=== PATIENT | male | born 1955 | race Caucasian/White ===

== ENCOUNTER 2016-06-22 08:20 | Outpatient (CLI) | END 2016-06-22 08:21 | disposition home or self-care (01) | LOC: AMBL 08:20 | PROVIDERS: ATTEND Emergency Medicine | DX: M79.605 Pain in left leg (principal); M79.604 Pain in right leg; S80.01XA Contusion of right knee, initial encounter; S80.812A Abrasion, left lower leg, initial encounter; M79.89 Other specified soft tissue disorders; I10 Essential (primary) hypertension; V53.5XXA Driver of pick-up truck or van injured in collision with car, pick-up truck or van in traffic accident, initial encounter ==

== ENCOUNTER 2017-06-25 13:41 | Outpatient (CLI) | END 2017-06-25 13:42 | disposition short-term general hospital (02) | LOC: AMBL 13:41 | PROVIDERS: ATTEND Internal Medicine | DX: R40.4 Transient alteration of awareness (principal); R06.02 Shortness of breath; R42 Dizziness and giddiness; I49.1 Atrial premature depolarization; I49.3 Ventricular premature depolarization ==

== ENCOUNTER 2017-09-21 15:00 | Outpatient (CLI) | END 2017-09-21 15:01 | disposition home or self-care (01) | LOC: RHC-LAB 15:00 | PROVIDERS: ATTEND Emergency Medicine | DX: F43.21 Adjustment disorder with depressed mood (principal); F41.1 Generalized anxiety disorder; R00.2 Palpitations; I10 Essential (primary) hypertension; C61 Malignant neoplasm of prostate | CPT/HCPCS: 36415; 80053; 80061; 84443; 85008; 85025; 93005; 93010 ==

== ENCOUNTER 2017-09-23 14:55 | Outpatient (CLI) ==
--- NOTE | 2017-09-24 08:30 | DI ---
EXAM: PA and lateral views of the chest HISTORY: Palpitations COMPARISON: Chest x-ray 05/19/2012 FINDINGS: The cardiomediastinal silhouette is normal. There is no pneumothorax or pleural effusion. There is no consolidation, nodule or mass. The osseous structures are stable. IMPRESSION: No acute cardiopulmonary process
== END 2017-09-23 14:56 | disposition home or self-care (01) ==
LOC: RAD 14:55
PROVIDERS: ATTEND Emergency Medicine
DX: R00.2 Palpitations (principal); R06.02 Shortness of breath

== ENCOUNTER 2017-10-07 16:15 | Inpatient (IN) ==
[2017-10-07] MEDS ORDERED: SODIUM CHLORIDE 500 ML IV SCH (16:30)
--- NOTE | 2017-10-07 17:08 | DI ---
Exam: Two-view chest x-ray. Date: 10/07/2017. Comparison: 09/23/2017. HISTORY: Shortness of breath. FINDINGS: The osseous structures are normal. The lungs are clear. The cardiac silhouette is enlarg ed. Pulmonary vasculature is normal. ASVD is present. Impression: No acute intrathoracic findings. Cardiomegaly with ASVD.
--- NOTE | 2017-10-07 17:12 | CT ---
Exam: CT scan of the abdomen pelvis without contrast. Date: 10/07/2017. Comparison: 05/20/2012. HISTORY: Bilateral lower extremity swelling. TECHNIQUE: Helical scan of the abdomen pelvis was performed without contrast. FINDINGS: There is a small layering right pleural effusion but incompletely visualized. The lumbar spine and bony pelvis are within normal limits. The spleen and liver have a uniform attenuation. There is possible thickening of the gallbladder wal l with pericholecystic fluid. The stomach, pancreas and adrenal glands are normal. The kidneys have a normal morphology. No calculi or hydronephrosis is seen. No retroperitoneal adenopathy is presen t. Aorta has peripheral calcification and does not exceed 3 cm. The small bowel and appendix are no rmal. The colon, pelvic sidewall and bladder are normal. There is no free pelvic fluid. There are dystrophic calcifications in the prostate. The rectum inguinal regions are normal. Impression: There is possible thickening of gallbladder wall pericholecystic fluid. Cannot exclude the possibility of acute cholecystitis. Abdominal sonogram would be recommended for further evaluati on. Small right pleural effusion.
[2017-10-07] MEDS: LOVENOX SUBCUT SCH (17:16)
[2017-10-07] MEDS: SODIUM CHLORIDE 1,000 ML IV SCH (17:18)
[2017-10-07 17:56] VITALS: BMI 30.1
[2017-10-07] MEDS: LOPRESSOR PO SCH (21:22)
[2017-10-08] MEDS: LOVENOX SUBCUT SCH (08:36)
[2017-10-08] MEDS ORDERED: LASIX IVP STA (08:36)
[2017-10-08] MEDS: CELEXA PO SCH (10:53)
[2017-10-08] MEDS: LOPRESSOR PO SCH ×2 (10:53→20:24)
--- NOTE | 2017-10-08 11:32 | US ---
EXAM: Ultrasound abdomen limited. HISTORY: Abnormal gallbladder on CT. COMPARISON: CT 1 day prior. TECHNIQUE: Abdominal, real time with image documentation: limited (eg, single organ, quadrant, foll ow-up) FINDINGS: The liver demonstrates homogeneous echotexture without intrahepatic biliary dilatation. P ortal venous flow is normal in direction. The gallbladder contains multiple echogenic shadowing stru ctures, gallbladder wall is moderately thickened. Common duct measures approximately 0.7 cm. Visual ized portions of the pancreas are unremarkable. IMPRESSION: Cholelithiasis and gallbladder wall thickening which would raise concern for acute cholecystitis in t he appropriate clinical setting.
[2017-10-08] MEDS: SODIUM CHLORIDE 1,000 ML IV SCH (15:03)
[2017-10-08] MEDS: ATIVAN PO SCH (20:24)
[2017-10-09] MEDS: LOPRESSOR PO SCH ×2 (08:48→21:39)
[2017-10-09] MEDS: CELEXA PO SCH (08:48)
[2017-10-09] MEDS: LOVENOX SUBCUT SCH (08:49)
[2017-10-09] MEDS: AZACTAM 1 GM in SODIUM CHLORIDE 50 ML IV SCH ×3 (09:30→21:39)
--- NOTE | 2017-10-09 09:46 | ECHO2D ---
Date of Exam: 10/08/17 Ordering Physician: DR. MIRLANDE LA Room #: [id number] Reason for Echo: LOWER EXTREMITY SWELLING, SOB M-Mode Normal Adult Results LV Dimensions Normal Adult Results AoV Opening excursions >1.6 >1.6 LVEDD-base- 3.5-5.8 6.8 Ao root dimensions 2.0-3.7 3.6 LVESD-base- 3.1-4.6 L. Atrium dimensions 1.9-3.8 4.8 Post. Wall thickness 0.8-1.1 1.3 IV septum (thickness) 0.7-1.2 1.3 Post. Wall excursion 0.72-1.3 0.6 Septal motion 0.1 Systolic motion R. Ventricular cavity 1.5-2.0 NORMAL LVEF 60% 20 TO 25% Paradoxical septal wall motion NORMAL 2-D : HYPOKINETIC LEFT VENTRICLE--NORMAL VALVES--ENLARGED LEFT VENTRICLE AND LEFT ATRIAL CAVITIES, NO EFFUSION, NO THROMBUS, AKINETIC SEPTUM COLOR FLOW: MODERATE MITRAL REGURGITATION, MILD TO MODERATE TRICUSPID REGURGITATION M-MODE: MV: NORMAL AV: NORMAL TV: NORMAL PV: CHAMBER SIZE: ENLARGED LEFT ATRIAL AND LEFT VENTRICLE CAVITIES WALL MOTION: HYPOKINETIC LEFT VENTRICLE PERICARDIUM: NORMAL INTERPRETATION: 1. LEFT VENTRICULAR HYPERTROPHY 2. ENLARGED LEFT VENTRICLE AND LEFT ATRIAL CAVITIES 3. LEFT VENTRICULAR EJECTION FRACTION 20% TO 25% WITH HYPOKINETIC LEFT VENTRICLE --AKINETIC SEPTUM 4. MODERATE MITRAL REGURGITATION AND MILD TO MODERATE TRICUSPID REGURGITATION MTDD
[2017-10-09] MEDS ORDERED: BUMEX IVP STA (09:47)
[2017-10-09] MEDS: SODIUM CHLORIDE 1,000 ML IV SCH (20:29)
[2017-10-09] MEDS: ATIVAN PO SCH (21:40)
[2017-10-10] MEDS: AZACTAM 1 GM in SODIUM CHLORIDE 50 ML IV SCH ×3 (05:19→20:25)
[2017-10-10] MEDS: LOPRESSOR PO SCH ×2 (09:37→20:25)
[2017-10-10] MEDS: CELEXA PO SCH (09:37)
[2017-10-10] MEDS: LOVENOX SUBCUT SCH (09:37)
[2017-10-10] MEDS ORDERED: ATIVAN ONE (19:48)
[2017-10-10] MEDS ORDERED: ATIVAN PO SCH (21:00)
[2017-10-10] MEDS: SODIUM CHLORIDE 1,000 ML IV SCH (23:41)
[2017-10-11] MEDS: AZACTAM 1 GM in SODIUM CHLORIDE 50 ML IV SCH ×3 (05:28→20:44)
[2017-10-11] MEDS: CELEXA PO SCH (08:58)
[2017-10-11] MEDS: LOPRESSOR PO SCH ×2 (08:58→20:44)
[2017-10-11] MEDS: LOVENOX SUBCUT SCH (08:59)
[2017-10-11] MEDS: DUONEB NEB SCH ×2 (13:23→22:20)
[2017-10-11] MEDS: ATIVAN PO SCH (20:44)
[2017-10-11] MEDS: SODIUM CHLORIDE 1,000 ML IV SCH (23:42)
[2017-10-12] MEDS: AZACTAM 1 GM in SODIUM CHLORIDE 50 ML IV SCH ×3 (04:31→20:02)
[2017-10-12] MEDS: DUONEB NEB SCH ×3 (04:48→22:50)
[2017-10-12] MEDS: LOPRESSOR PO SCH ×2 (08:54→20:02)
[2017-10-12] MEDS: LOVENOX SUBCUT SCH (08:54)
[2017-10-12] MEDS: CELEXA PO SCH (08:54)
--- NOTE | 2017-10-12 11:18 | PN ---
DATE OF SERVICE: 10/10/17 SUBJECTIVE: The patient was admitted with acute on chronic heart failure with echocardiogram showed the ejection fracture of 25%. When I talked to Dr. Rojo Intervention Manager Convention given his kidney function he said that he will not be a candidate for the heart cath at this time. With the GFR 28 he suggested giving the IV fluids and if the kidney function improves then he will be happy to take care of the patient for the heart cath. Meanwhile the patient being treated for the acute cholecystitis also per ultrasound and elevated liver enzymes. The patient has a very much depressed mood because of the demise of the patient's . REVIEW OF SYSTEMS: CONSTITUTIONAL: No fever, no chills. HEENT: Normal. ENDOCRINE: No weight gain, no weight loss. CVS: No angina symptoms. No CHF symptoms. No palpitations. No atypical chest pain for CAD. No shortness of breath. No PND, no orthopnea. RESPIRATORY: No cough, no hemoptysis. GI: No nausea, no vomiting. No abdominal pain. : No hematuria. No polyuria. MUSCULOSKELETAL: No joint swelling. PSYCHIATRIC: Not anxious. No depression. No suicidal thoughts. No homicidal thoughts. SKIN: Intact. No rash. PHYSICAL EXAMINATION: V/S: Blood pressure 136/95, respiratory rate 20, heart rate 77, temperature 97.5 with saturation 99 on 2 liters. HEENT: Normocephalic, atraumatic. Mucosa dry. Pallor positive. No icterus. NECK: Supple. No JVD, no carotid bruit. No lymphadenopathy. LUNGS: Decreased and clear to auscultation. No rales or rhonchi. HEART: S1, S2 normal. No S3. No murmur, gallop or regurgitation. ABDOMEN: Soft, nontender. Bowel sounds active. No rigidity. No rebound or guarding. No CVA tenderness. EXTREMITIES: No cyanosis, clubbing. 1+ edema. MUSCULOSKELETAL: No joint swelling. NEUROLOGIC: Awake, alert, oriented times three. No focal deficit. LYMPHATIC: No lymph nodes palpable. SKIN: Intact. LABS: Sodium 135, potassium 3.9, chloride 103, bicarb 22, BUN 15, creatinine 2.27, AST 136, ALT 368, total bilirubin 1.0, WBC 8.10, hgb 14.3, hct 44.0, plt count 60. ASSESSMENT: 1. Acute on chronic heart failure with ejection fraction of 25%, Left ventricular hypertrophy, Left atrial enlargement, Moderate mitral regurgitation and Mild to moderate tricuspid regurgitation 2. Depression 3. Elevated liver enzymes 4. Cholecystitis per ultrasound but patient does not have abdominal pain, nausea or vomiting or no Shook sign positive. 5. Acute on chronic systolic heart failure needing heart cath but the patient is not a candidate at this time. Contacted Dr. Rojo Intervention Manager Convention at [facility]. PLAN: 1. Continue the daily I&O's 2. Lovenox 30mg 3. Citalopram 4. Azactam 5. IV fluids TIME SPENT: More than 35 minutes MTDD
--- NOTE | 2017-10-12 11:44 | PN ---
DATE OF SERVICE: 10/11/17 SUBJECTIVE: The patient was admitted with acute on chronic heart failure. The patient been having some hypoxic event, saturation going up to 92. We will go ahead and start him on breathing treatments. Reassured patient. REVIEW OF SYSTEMS: CONSTITUTIONAL: No fever, no chills. HEENT: Normal. ENDOCRINE: No weight gain, no weight loss. CVS: No angina symptoms. No CHF symptoms. No palpitations. No atypical chest pain for CAD. Shortness of breath with minimal exertion. No PND, no orthopnea. RESPIRATORY: No cough, no hemoptysis. GI: No nausea, no vomiting. No abdominal pain. : No hematuria. No polyuria. MUSCULOSKELETAL: No joint swelling. PSYCHIATRIC: Not anxious. No depression. No suicidal thoughts. No homicidal thoughts. SKIN: Intact. No rash. PHYSICAL EXAMINATION: V/S: Blood pressure 158/100, respiratory rate 14, heart rate 83, temperature 97.3 with saturation 99. HEENT: Normocephalic, atraumatic. Mucosa dry. Pallor positive. no icterus. NECK: Supple. No JVD, no carotid bruit. No lymphadenopathy. LUNGS: Decreased and basilar crackles. No rales or rhonchi. HEART: S1, S2 normal. No S3. No murmur, gallop or regurgitation. ABDOMEN: Soft, nontender. Bowel sounds active. No rigidity. No rebound or guarding. No CVA tenderness. EXTREMITIES: No cyanosis, clubbing or pedal edema. MUSCULOSKELETAL: No joint swelling. NEUROLOGIC: Awake, alert, oriented times three. No focal deficit. LYMPHATIC: No lymph nodes palpable. SKIN: Intact. LABS: Sodium 130, potassium 3.9, chloride 103, bicarb 22, BUN 50, creatinine 2.27, bilirubin 1.0, AST 136, ALT 368, WBC 8.10, hgb 14.3, hct 44.0, plt count 60. ASSESSMENT: 1. Acute systolic heart failure 2. Severely decreased left ventricular ejection fraction 22-25%. Needing heart cath 3. Chronic kidney disease with GFR 29. As the per the patient account liaison Dr. Rojo he could not get heart cath at this time. 4. Acute cholecystitis per ultrasound but symptoms clinically, no abdominal pain, No Shook sign. 5. Elevated liver enzymes 6. Depression 7. Grief PLAN: 1. Continue the Azactam 2. Continue the Daily I&O's 3. IV fluids 4. Lorazepam 5. Will add DUO NEBS TIME SPENT: More than 35 minutes MTDD
[2017-10-12] MEDS: ZESTRIL PO SCH (13:55)
[2017-10-12] MEDS: ATIVAN PO SCH (20:04)
[2017-10-13] MEDS: SODIUM CHLORIDE 1,000 ML IV SCH (01:51)
[2017-10-13] MEDS: AZACTAM 1 GM in SODIUM CHLORIDE 50 ML IV SCH (05:17)
[2017-10-13 05:26] VITALS: TEMP 98.1
[2017-10-13] MEDS: DUONEB NEB SCH (05:45)
[2017-10-13] MEDS ORDERED: K-DUR PO STA (07:45)
--- NOTE | 2017-10-13 08:44 | PN ---
DATE OF SERVICE: 10/08/17 SUBJECTIVE: The patient was admitted from the office yesterday for acute on chronic heart failure. BNP was 3641, CK-MB 8.0. The patient is not having any chest pain but is short of breath. Dr. Batres did echocardiogram which showed ejection fraction 42% with left ventricular hypertrophy. No abdominal pain or nausea at this time. REVIEW OF SYSTEMS: CONSTITUTIONAL: No fever, no chills. HEENT: Normal. ENDOCRINE: No weight gain, no weight loss. CVS: No angina symptoms. No CHF symptoms. No palpitations. No atypical chest pain for CAD. No shortness of breath. No PND, no orthopnea. RESPIRATORY: No cough, no hemoptysis. GI: No nausea, no vomiting. No abdominal pain. : No hematuria. No polyuria. MUSCULOSKELETAL: No joint swelling. PSYCHIATRIC: Not anxious. No depression. No suicidal thoughts. No homicidal thoughts. SKIN: Intact. No rash. PHYSICAL EXAMINATION: V/S: BP 131/101, respiratory rate 20, heart rate 96.4, saturation 96. HEENT: Normocephalic, atraumatic. Mucosa dry. NECK: Supple. No JVD, no carotid bruit. No lymphadenopathy. LUNGS: Decreased breath sounds with basilar crackles. HEART: S1, S2 normal. No S3. No murmur, gallop or regurgitation. ABDOMEN: Soft, nontender. Bowel sounds active. No rigidity. No rebound or guarding. No CVA tenderness. EXTREMITIES: 2+ lower extremity edema present. No cyanosis or clubbing. MUSCULOSKELETAL: No joint swelling. NEUROLOGIC: Awake, alert. No focal deficit. LYMPHATIC: No lymph nodes palpable. SKIN: Intact. LABS: White count 7.04, hemoglobin 14.3, hematocrit 44.1, platelet count 50. Sodium 133, potassium 4.1, chloride 103, bicarb 20, BUN 36, creatinine 1.87, glucose 120, AST 134, ALT 134. CK-MB 7.5 and 5.9. BNP 3641. ASSESSMENT: 1. ACUTE ON CHRONIC HEART FAILURE 2. CHRONIC KIDNEY DISEASE 3. ELEVATED LIVER ENZYMES 4. CT SCAN SHOWING CHOLELITHIASIS 5. DEPRESSION 6. ANXIETY CT scan of abdomen and pelvis shows questionable cholecystitis but the patient denies any pain and no right upper quadrant tenderness and no Shook's sign at this time. TIME SPENT: More than 35 minutes MTDD
--- NOTE | 2017-10-13 08:47 | PCM.HOSP ---
- Initial Hospital Care [id number] 70 Minutes Bedside ([id number]): 10/07 - Subsequent Care [id number] 35 Minutes per Day ([id number]): 10/08. 7/. 7/14. 7/. / - Hospital Discharge [id number] More than 30 Minutes ([id number]): 10/13
[2017-10-13] MEDS: ZESTRIL PO SCH (08:59)
[2017-10-13] MEDS: LOPRESSOR PO SCH (08:59)
[2017-10-13] MEDS: CELEXA PO SCH (08:59)
[2017-10-13] MEDS: LOVENOX SUBCUT SCH (09:00)
[2017-10-13 10:00] VITALS: BP 144/96
--- NOTE | 2017-10-13 12:17 | PN ---
DATE OF SERVICE: 10/12/17 SUBJECTIVE: The patient was admitted with acute heart failure. The patient has been waiting to get the heart cath because ejection fraction is 20 to 25% on echocardiogram. Stress echo was not recommended by Dr. Batres due to ejection fraction of 20 to 25%. It was felt that the patient would benefit from a heart catheterization. When he was admitted his BUN and creatinine was high 36 and 1.87 which did improve now. Today is 31 and 1.19 and GFR is 62. Liver enzymes are also improved a lot. The patient still has some shortness of breath on exertion. Otherwise no chest pain. REVIEW OF SYSTEMS: CONSTITUTIONAL: No fever, no chills. HEENT: Normal. ENDOCRINE: No weight gain, no weight loss. CVS: No angina symptoms. No CHF symptoms. No palpitations. No atypical chest pain for CAD. Some shortness of breath on exertion. No PND, no orthopnea. RESPIRATORY: No cough, no hemoptysis. GI: No nausea, no vomiting. No abdominal pain. : No hematuria. No polyuria. MUSCULOSKELETAL: No joint swelling. PSYCHIATRIC: Not anxious. No depression. No suicidal thoughts. No homicidal thoughts. SKIN: Intact. No rash. PHYSICAL EXAMINATION: V/S: BP 148/86, respiratory rate 17, heart rate 89, temperature 97.6, saturation 95. HEENT: Normocephalic, atraumatic. Mucosa dry. Pallor positive. No icterus. NECK: Supple. No JVD, no carotid bruit. No lymphadenopathy. LUNGS: Decreased basilar crackles. HEART: S1, S2 normal. No S3. No murmur, gallop or regurgitation. ABDOMEN: Soft, nontender. Bowel sounds active. No rigidity. No rebound or guarding. No CVA tenderness. EXTREMITIES: 1+ edema. No cyanosis or clubbing. MUSCULOSKELETAL: No joint swelling. NEUROLOGIC: Awake, alert. No focal deficit. LYMPHATIC: No lymph nodes palpable. SKIN: Intact. LABS: Sodium 135, potassium 3.4, chloride 104, bicarb 24, BUN 31, creatinine 1.19, glucose 103. White count 6.41, hemoglobin 13.1, hematocrit 41.7, platelet count 68. ASSESSMENT: 1. ACUTE SYSTOLIC HEART FAILURE WITH EJECTION FRACTION 20 TO 25 NEEDING FURTHER EVALUATION 2. ACUTE RENAL FAILURE WHICH IS IMPROVED, GFR TODAY IS 69 3. THROMBOCYTOPENIA 4. DEPRESSION 5. LEG EDEMA I talked to Dr. Rojo. He wanted to see the patient as an outpatient. I talked to Dr. Rojo on Thursday. He clearly suggested that we should hydrate the patient given the renal failure and if the kidney numbers are better, he is going to do the heart cath but when I called him on October 12, he said that he will see the patient as an outpatient. I do think that given the patient's new onset heart failure with poor ejection fraction and severe depression, I think the patient definitely needs a heart cath while in the hospital. We will try to talk to [facility] in the morning and will decide. TIME SPENT: More than [address] [facility]
--- NOTE | 2017-10-13 12:31 | DS ---
DATE OF SERVICE: 10/13/17 FINAL DIAGNOSIS: 1. Acute systolic heart failure with BMI 3600 and ejection fracture 25%. 2. Acute renal failure, the numbers have improved tremendously now, GFR today is 62. 3. Cholelithiasis per CAT scan and ultrasound but signs of cholecystitis, no right upper quadrant pain, no nausea or vomiting 4. Improved liver function test, AST 35 and ALT 171. 5. Chronic kidney disease 6. Hypokalemia replacing with the 40 Potassium today 7. Depression 8. Thrombocytopenia which is not being evaluated which is a new problem for the patient, also he did not remember having any problem DISCHARGE INSTRUCTIONS: Discharge the patient to the [facility] under the care of Dr. Mcfarlane. Continue current care of medications. MEDICATIONS AT DISCHARGE: Metoprolol 50mg PO twice a day Lorazepam at bedtime Zestril 10mg PO daily DUO NEBS Lovenox 30mg SUBCUT daily Citalopram Azactam been prophylactically given for the covering of the gallbladder but again there is no acute abdominal pain at this time pointing towards the gallbladder issues. DIET INSTRUCTIONS: Cardiac and Healthy DISEASE SPECIFIC EDUCATION: CHF Low ejection fraction Need for heart cath been discussed to the patient and verbalized understanding. HOSPITAL COURSE: Anirudh Price who is a 62 year old gentleman recently came to establish care with me on September 21 at that time the patient was having some shortness of breath, leg edema. The patient did the outpatient blood work which showed the renal failure and abnormal EKG for which the patient was suggested to have evaluation for the abnormal EKG. The patient was actually go through acute grief because the patient lost his . The patient was started on the Antidepressant and refused to the admission but came back in two week on October 07 complaining of still short of breath and not able to breathe well. Admitted to the hospital BNP 3641, BUN 33 and creatinine 1.86 and GFR was 27. We asked Dr. Batres to do the echocardiogram which did show ejection fraction to 22-25% with the LVH and left ventricle hypertrophy. At that time wanted to get him for the heart cath but AST and ALT went up to 554 AST and ALT 640, Total bilirubin 1.8. CT of abdomen and pelvis did show Cholelithiasis. The patient was not having any acute abdominal pain, nausea or vomiting. When we talked to the adolescent psychiatrist in [facility] they said the GFR being 28 and 29 at that time we will not be comfortable doing the heart cath and they wanted us to hydrate the patient and if the patient improves they are going to help us. The adolescent psychiatrist was approached on October 12 and they wanted to see the patient as outpatient but given his new onset heart failure, poor ejection fraction I thought the patient definitely needs heart cath inpatient setting before he goes outside. We talked to Dr. Mcfarlane and he was courteous enough to accept the patient at the [facility] and the patient will be transferred to the [facility]. TIME SPENT: MORE THAN 65 MINUTES MTDTiffany
== END 2017-10-13 11:40 | disposition home or self-care (01) | DRG 684 ==
LOC: MEDSURG A 16:15 → SCU 10-09 10:22
PROVIDERS: ADMIT Emergency Medicine; ATTEND Emergency Medicine
DX: N17.9 Acute kidney failure, unspecified (principal); R06.02 Shortness of breath; K80.20 Calculus of gallbladder without cholecystitis without obstruction; N18.9 Chronic kidney disease, unspecified; E87.6 Hypokalemia; D69.6 Thrombocytopenia, unspecified; F41.8 Other specified anxiety disorders; I10 Essential (primary) hypertension; R60.0 Localized edema; F32.9 Major depressive disorder, single episode, unspecified
CPT/HCPCS: 36415; 80053; 81001; 82550; 82553; 83880; 84484; 85008; 85025; 87086; 93005; 93010; 94640

== ENCOUNTER 2018-07-26 10:26 | Outpatient (CLI) | END 2018-07-26 10:27 | disposition home or self-care (01) | LOC: RHC-LAB 10:26 | PROVIDERS: ATTEND Nurse Practitioner Family | DX: Z00.00 Encounter for general adult medical examination without abnormal findings (principal); Z12.5 Encounter for screening for malignant neoplasm of prostate | CPT/HCPCS: 36415; 80053; 80061; 84443; 85025 ==